=== PATIENT | female | born 1970 | race Caucasian/White ===

== ENCOUNTER 2018-12-17 10:30 | Outpatient (RCR) | payer OTHER | END 2019-01-11 | disposition still patient (30) | LOC: PT | DX: Z47.89 Encounter for other orthopedic aftercare (principal); M25.511 Pain in right shoulder ==

== ENCOUNTER 2019-06-21 09:00 | Outpatient (RCR) | payer OTHER | END 2019-06-21 09:30 | disposition home or self-care (01) | LOC: PT 09:00 | DX: M25.511 Pain in right shoulder (principal); Z98.890 Other specified postprocedural states ==

== ENCOUNTER → 2020-05-16 | Outpatient (CLI) | payer OTHER ==
[2020-05-17 02:54] LABS: HEPATITIS B SURFACE ANTIBODY 11.1 (())
== END ==
LOC: LAB 10:13
PROVIDERS: Family Medicine
DX: Z01.89 Encounter for other specified special examinations (principal)

== ENCOUNTER → 2020-07-25 | Outpatient (CLI) | payer OTHER | LOC: LAB 10:24 | DX: R20.2 Paresthesia of skin (principal); R09.89 Other specified symptoms and signs involving the circulatory and respiratory systems ==

== ENCOUNTER → 2020-08-24 | Outpatient (CLI) | payer OTHER | LOC: LAB 11:11 | DX: R05 Cough (principal); R09.81 Nasal congestion; Z20.828 Contact with and (suspected) exposure to other viral communicable diseases ==

== ENCOUNTER → 2020-09-11 | Outpatient (CLI) | payer OTHER ==
[2020-09-11 14:43] LABS: BASO # 0.1 (0.02-0.10); EOS # 0.2 (0.04-0.40); EOS % 2.1 % (1.0-5.0); HEMATOCRIT 43.2 % (37.0-47.0); HEMOGLOBIN 14.4 g/dL (12.5-16.0); LYMPH# 2.8 (1.50-4.00); MEAN CELL VOLUME 83 fl (78-100); MEAN CORPUSCULAR HEMOGLOBIN 28 pg (27-31); MEAN CORPUSCULAR HGB CONC 33 g/dL (33-37); MEAN PLATELET VOLUME 9.7 fl (7.4-10.4); MONO # 0.7 (0.20-0.80); NEU # 5.4 (1.40-6.50); PLATELET COUNT 374 K/mm3 (130-400); RED BLOOD COUNT 5.18 M/mm3 (4.10-5.30); RED CELL DISTRIBUTION WIDTH 14.1 % (11.5-14.5); WHITE BLOOD COUNT 9.2 K/mm3 (4.8-10.8)
[2020-09-11 14:53] LABS: ALBUMIN 4.2 g/dL (3.5-5.0); POTASSIUM 4.3 mmol/L (3.5-5.1)
[2020-09-11 14:55] LABS: CALCIUM 9.1 mg/dL (8.3-10.5)
[2020-09-11 14:56] LABS: TOTAL PROTEIN 7.7 g/dL (6.4-8.3)
[2020-09-11 14:58] LABS: TOTAL BILIRUBIN 0.4 mg/dL (0.2-1.2)
== END ==
LOC: LAB 14:27
PROVIDERS: Internal Medicine
DX: R20.2 Paresthesia of skin (principal)

== ENCOUNTER → 2020-09-26 | Outpatient (CLI) | payer OTHER | LOC: MAMMO 11:19 | DX: Z12.31 Encounter for screening mammogram for malignant neoplasm of breast (principal) ==

== ENCOUNTER → 2021-03-21 | Outpatient (CLI) | payer OTHER ==
[2021-03-21 10:01] LABS: BASO # 0.09 (0.02-0.10); EOS # 0.17 (0.04-0.40); EOS % 1.9 % (1.0-5.0); HEMATOCRIT 41.7 % (37.0-47.0); HEMOGLOBIN 14.1 g/dL (12.5-16.0); LYMPH# 2.72 (1.50-4.00); MEAN CELL VOLUME 84 fl (78-100); MEAN CORPUSCULAR HEMOGLOBIN 28 pg (27-31); MEAN CORPUSCULAR HGB CONC 34 g/dL (33-37); MEAN PLATELET VOLUME 9.8 fl (7.4-10.4); MONO # 0.74 (0.20-0.80); NEU # 5.12 (1.40-6.50); PLATELET COUNT 344 K/mm3 (130-400); RED BLOOD COUNT 4.97 M/mm3 (4.10-5.30); RED CELL DISTRIBUTION WIDTH 13.5 % (11.5-14.5); WHITE BLOOD COUNT 8.9 K/mm3 (4.8-10.8)
[2021-03-21 10:35] LABS: ALBUMIN 3.8 g/dL (3.5-5.0); POTASSIUM 4.1 mmol/L (3.5-5.1)
[2021-03-21 10:36] LABS: CALCIUM 8.3 mg/dL (8.3-10.5)
[2021-03-21 10:39] LABS: TOTAL BILIRUBIN 0.3 mg/dL (0.2-1.2)
[2021-03-21 11:05] LABS: ERYTHROCYTE SEDIMENTATION RATE 15 mm/hr (0-20)
== END ==
LOC: LAB 09:49
PROVIDERS: Internal Medicine
DX: R20.2 Paresthesia of skin (principal)

== ENCOUNTER → 2021-07-16 | Outpatient (REF) | LOC: LAB 13:42 | DX: Z20.822 Contact with and (suspected) exposure to COVID-19 (principal) ==

== ENCOUNTER → 2021-09-17 | Outpatient (CLI) | payer OTHER ==
[2021-09-17 18:51] LABS: URINE APPEARANCE CLEAR; URINE COLOR YELLOW; URINE GLUCOSE NEGATIVE (NEGATIVE); URINE PROTEIN(semi-quant) TRACE mg/dL (NEGATIVE)
[2021-09-17 18:52] LABS: URINE BILIRUBIN NEGATIVE (NEGATIVE); URINE BLOOD NEGATIVE (NEGATIVE); URINE KETONE NEGATIVE (NEGATIVE); URINE LEUKOCYTE ESTERASE NEGATIVE (NEGATIVE); URINE MUCUS PRESENT (NOT PRESENT); URINE NITRATE NEGATIVE (NEGATIVE); URINE UROBILINOGEN NORMAL (NORMAL); URINE WBC 0-1 /hpf (0-3)
== END ==
LOC: LAB 18:10
PROVIDERS: Nurse Practitioner
DX: Z01.89 Encounter for other specified special examinations (principal)

== ENCOUNTER → 2022-05-15 | Outpatient (CLI) | payer OTHER ==
[2022-05-15 13:08] LABS: BASO # 0.08 K/mm3 (0.02-0.10); EOS # 0.17 K/mm3 (0.04-0.40); EOS % 2.1 % (1.0-5.0); HEMATOCRIT 39.9 % (37.0-47.0); HEMOGLOBIN 13.6 g/dL (12.5-16.0); LYMPH# 2.69 K/mm3 (1.50-4.00); MEAN CELL VOLUME 86 fl (78-100); MEAN CORPUSCULAR HEMOGLOBIN 29 pg (27-31); MEAN CORPUSCULAR HGB CONC 34 g/dL (33-37); MEAN PLATELET VOLUME 10.1 fl (7.4-10.4); MONO # 0.47 K/mm3 (0.20-0.80); NEU # 4.62 K/mm3 (1.40-6.50); PLATELET COUNT 308 K/mm3 (130-400); RED BLOOD COUNT 4.63 M/mm3 (4.10-5.30); RED CELL DISTRIBUTION WIDTH 12.9 % (11.5-14.5)
[2022-05-15 13:18] LABS: ALBUMIN 4.5 g/dL (3.5-5.0)
[2022-05-15 13:19] LABS: POTASSIUM 4.2 mmol/L (3.5-5.1)
[2022-05-15 13:20] LABS: CALCIUM 9.1 mg/dL (8.3-10.5)
[2022-05-15 13:21] LABS: TOTAL PROTEIN 7.5 g/dL (6.4-8.3)
[2022-05-15 13:23] LABS: TOTAL BILIRUBIN 0.5 mg/dL (0.2-1.2)
[2022-05-15 13:53] LABS: URINE APPEARANCE HAZY; URINE BILIRUBIN NEGATIVE (NEGATIVE); URINE BLOOD NEGATIVE (NEGATIVE); URINE COLOR YELLOW; URINE GLUCOSE NEGATIVE (NEGATIVE); URINE KETONE NEGATIVE (NEGATIVE); URINE LEUKOCYTE ESTERASE NEGATIVE (NEGATIVE); URINE NITRATE NEGATIVE (NEGATIVE); URINE PROTEIN(semi-quant) TRACE (NEGATIVE); URINE UROBILINOGEN NORMAL (NORMAL); URINE WBC 0-1 /hpf (0-3)
== END ==
LOC: LAB 12:48
PROVIDERS: Nurse Practitioner Family
DX: R10.84 Generalized abdominal pain (principal)

== ENCOUNTER → 2024-08-10 | Outpatient (CLI) | payer OTHER ==
[2024-08-10 14:14] LABS: BASO # 0.06 K/mm3 (0.02-0.10); EOS % 2.3 % (1.0-5.0); HEMATOCRIT 38.8 % (37.0-47.0); HEMOGLOBIN 12.8 g/dL (12.5-16.0); LYMPH# 2.46 K/mm3 (1.50-4.00); MEAN CELL VOLUME 91 fl (78-100); MEAN CORPUSCULAR HEMOGLOBIN 30 pg (27-31); MEAN CORPUSCULAR HGB CONC 33 g/dL (33-37); MEAN PLATELET VOLUME 9.1 fl (7.4-10.4); MONO # 0.68 K/mm3 (0.20-0.80); PLATELET COUNT 332 K/mm3 (130-400); RED BLOOD COUNT 4.27 M/mm3 (4.10-5.30); RED CELL DISTRIBUTION WIDTH 12.3 % (11.5-14.5); WHITE BLOOD COUNT 8.8 K/mm3 (4.8-10.8)
[2024-08-10 14:23] LABS: ALBUMIN 4.2 g/dL (3.5-5.0)
[2024-08-10 14:24] LABS: CALCIUM 8.6 mg/dL (8.3-10.5)
[2024-08-10 14:47] LABS: TOTAL BILIRUBIN 0.3 mg/dL (0.2-1.2)
== END ==
LOC: LAB 13:58
PROVIDERS: Nurse Practitioner
DX: R05.9 Cough, unspecified (principal); R53.83 Other fatigue; R07.9 Chest pain, unspecified; Z20.822 Contact with and (suspected) exposure to COVID-19